=== PATIENT | female | born 1950 | race Caucasian/White ===

== ENCOUNTER → 2023-04-15 11:59 | Outpatient (REF) | payer MEDICARE, SELFPAY | LOC: HWWDC 11:59 | PROVIDERS: ATTENDING PHYSICIAN Family Medicine | DX: Z12.31 Encounter for screening mammogram for malignant neoplasm of breast (principal) | CPT/HCPCS: 77063; 77067 ==

== ENCOUNTER → 2023-05-03 11:29 | Outpatient (REF) | payer MEDICARE, SELFPAY | LOC: HWRAD 11:29 | PROVIDERS: ATTENDING PHYSICIAN Internal Medicine Gastroenterology; FAMILY PHYSICIAN Internal Medicine Cardiovascular Disease | DX: R19.7 Diarrhea, unspecified (principal) | CPT/HCPCS: 74018 ==

== ENCOUNTER 2023-07-29 09:59 | Outpatient (RCR) | payer MEDICARE, SELFPAY | END 2023-07-29 23:59 | disposition home or self-care (01) | LOC: RPT 09:59 | PROVIDERS: ATTENDING PHYSICIAN Internal Medicine Gastroenterology; FAMILY PHYSICIAN Family Medicine | DX: M62.89 Other specified disorders of muscle (principal); R15.2 Fecal urgency; Z73.6 Limitation of activities due to disability; R27.8 Other lack of coordination; M62.81 Muscle weakness (generalized) | CPT/HCPCS: 97140; 97162; 97530 ==

== ENCOUNTER 2023-09-02 10:02 | Outpatient (RCR) | payer MEDICARE, SELFPAY | END 2023-09-02 23:59 | disposition home or self-care (01) | LOC: RPT 10:02 | PROVIDERS: ATTENDING PHYSICIAN Internal Medicine Gastroenterology; FAMILY PHYSICIAN Family Medicine | DX: M62.89 Other specified disorders of muscle (principal); R15.2 Fecal urgency; Z73.6 Limitation of activities due to disability; R27.8 Other lack of coordination; M62.81 Muscle weakness (generalized) | CPT/HCPCS: 97112; 97140; 97530 ==

== ENCOUNTER 2023-10-03 16:04 | Outpatient (RCR) | payer MEDICARE, SELFPAY | END 2023-10-03 23:59 | disposition home or self-care (01) | LOC: RPT 16:04 | PROVIDERS: ATTENDING PHYSICIAN Internal Medicine Gastroenterology; FAMILY PHYSICIAN Family Medicine | DX: M62.89 Other specified disorders of muscle (principal); R15.2 Fecal urgency; Z73.6 Limitation of activities due to disability; R27.8 Other lack of coordination; M62.81 Muscle weakness (generalized) | CPT/HCPCS: 97140; 97530 ==

== ENCOUNTER 2023-10-25 11:17 | Emergency (ER) | payer MEDICARE, SELFPAY ==
[2023-10-25 11:21] VITALS: BP 101/54
[2023-10-25 11:23] VITALS: BP 101/54
[2023-10-25 11:25] VITALS: BMI 32.5
[2023-10-25 11:37] LABS: % Basophils 0.3 % (0-2); % Eosinophils 0.1 % (0-6); % Immature Granulocytes 0.5 % (0-0.5); % Lymphocytes 22.8 % (20.5-51.1); % Monocytes 13.9 % (1.7-9.3); % Neutrophils 62.4 % (42.2-75.2); Absolute Lymphocytes 1.8 10^3/uL (1.2-3.4); Absolute Monocytes 1.1 10^3/uL (0.1-0.6); Absolute Neutrophils 4.8 10^3/uL (1.4-6.5); Hematocrit 38.2 % (37.0-47.0); Hemoglobin 13.6 g/dL (12.0-16.0); Mean Corp Hgb Conc. 35.6 g/dL (33.0-37.0); Mean Corpuscular Hgb 31.6 pg (27.0-31.0); Mean Corpuscular Volume 88.6 fL (81.0-99.0); Mean Platelet Volume 9.2 fL (7.4-10.4); Nucleated Red Blood Cells % 0 %; Platelet Count 173 10^3/uL (130-400); Red Blood Cell Count 4.31 10^6/uL (4.20-5.40); White Blood Cell Count 7.8 10^3/uL (4.8-10.8)
--- NOTE | 2023-10-25 11:42 | ED.GENMED ---
History of Present Illness
<Marivel Rajput PA-C - Last Filed: 10/25/23 14:02>
General
Chief Complaint: Dizziness
Source: patient
Exam Limitations: none
Time Seen by Provider: 10/25/23 11:40
Nursing documentation reviewed up to this point in time: agreed with
History of Present Illness
History of Present Illness:
73-year-old female with past medical history of CHF, A-fib, hyperlipidemia presenting emergency department today with concerns of dizziness and lightheadedness. Patient reports that she woke up this morning and felt well and was getting ready to go
to [facility] when she stood up from a sitting position and suddenly felt dizzy and lightheaded. She then became diaphoretic and felt the urge to move her bowels, she then went to go use the bathroom and a large volume of loose stool. Patient also
notes generalized cough and cold symptoms including sore throat. Patient denies any fevers or chills. Patient denies any recent travel, any recent antibiotics. Patient states that the primary dizziness has resolved and now she feels a generalized
weakness and not like herself. Patient denies chest pain or shortness of breath, denies any headache or visual changes. Patient denies any syncopal episodes. Patient follows with Dr. Dove has a pacemaker in place.
Past History
<DANICA Rosario Last Filed: 10/25/23 14:02>
Past History
ED Past Medical History: Arrthythmia, CAD, CHF, COPD, GERD, HTN, Hypercholesterolemia and Other (Pacemaker)
ED Past Surgical History: Cardiac and Gynecological
Social History
Tobacco: Non-smoker
Alcohol: Occasional
Drug: None
Personal:
Living: alone
Employment: Employed
Family History
Family History: Negative Early CAD
Review of Systems
<Marivel Rajput PA-C - Last Filed: 10/25/23 14:02>
Review of Systems
All Other Systems: ROS reviewed and negative except as documented in HPI and ROS
Phy Exam
<Marivel Rajput PA-C - Last Filed: 10/25/23 14:02>
Physical Exam
Physical Exam:
General: Patient is well appearing and in no acute distress; non-toxic
Skin: Warm and dry, no rashes or lesions
Head: Normocephalic, atraumatic
Eyes: Sclera non-icteric. EOMs intact. No nystagmus.
Mouth: Mild pharyngeal erythema, no tonsillar hypertrophy, uvula midline
Neck: No cervical lymphadenopathy
Cardiac: Regular rate and rhythm, no murmurs
Peripheral Vascular: No lower extremity swelling or edema
Pulm: Normal respiratory effort, no wheezes, rales, rhonchi
Abdomen: No abdominal tenderness to palpation
Musculoskeletal: 5 of 5 strength bilateral upper and lower extremities
Neuro: CN II-XII intact, no focal neurologic deficits. Normal finger-nose, heel june testing. Normal gait.
Psychiatric: Appropriate mood and affect.
Course
<Marivel Rajput PA-C - Last Filed: 10/25/23 14:02>
Orders/Labs/Results
Orders:
Orders
10/25/23 11:20
Electrocardiogram (*1) Urgent
Reason for Study: Fatigue / Weakness
10/25/23 11:21
EKG- Treatment ONCE
10/25/23 11:30
Complete Blood Count/With Diff Urgent
Comprehensive Metabolic Panel Urgent
10/25/23 12:11
COVID-19 Antigen Urgent
Source: Nasal Swab
Abnormal Lab Results
10/25/23 10/25/23
11:30 12:11
MCH 31.6 H pg
(27.0-31.0)
Absolute Monos (auto) 1.1 H 10^3/uL
(0.1-0.6)
Monocytes % 13.9 H %
(1.7-9.3)
Chloride 97 L mmol/L
(98-107)
BUN 24 H mg/dl
(7-17)
Glucose 100 H mg/dl
(70-99)
SARS-CoV-2 Antigen Positive A
(Negative)
10/25/23 11:30
10/25/23 11:30
Vital Signs
Initial and Last Documented VS:
Initial Vital Signs
BP
101/54
10/25/23 11:21
Last Documented Vital Signs
Temp Pulse Resp BP Pulse Ox
37.0 C 60 19 106/49 96
10/25/23 11:23 10/25/23 14:00 10/25/23 14:00 10/25/23 13:00 10/25/23 14:00
<Harjit Weinberg MD - Last Filed: 10/25/23 15:10>
Orders/Labs/Results
Orders:
Orders
10/25/23 11:20
Electrocardiogram (*1) Urgent
Reason for Study: Fatigue / Weakness
10/25/23 11:21
EKG- Treatment ONCE
10/25/23 11:30
Complete Blood Count/With Diff Urgent
Comprehensive Metabolic Panel Urgent
10/25/23 12:11
COVID-19 Antigen Urgent
Source: Nasal Swab
Abnormal Lab Results
10/25/23 10/25/23
11:30 12:11
MCH 31.6 H pg
(27.0-31.0)
Absolute Monos (auto) 1.1 H 10^3/uL
(0.1-0.6)
Monocytes % 13.9 H %
(1.7-9.3)
Chloride 97 L mmol/L
(98-107)
BUN 24 H mg/dl
(7-17)
Glucose 100 H mg/dl
(70-99)
SARS-CoV-2 Antigen Positive A
(Negative)
10/25/23 11:30
10/25/23 11:30
Vital Signs
Initial and Last Documented VS:
Initial Vital Signs
BP
101/54
10/25/23 11:21
Last Documented Vital Signs
Temp Pulse Resp BP Pulse Ox
37.0 C 60 19 106/49 96
10/25/23 11:23 10/25/23 14:00 10/25/23 14:00 10/25/23 13:00 10/25/23 14:00
Clauslt;Marivel Rajput PA-C - Last Filed: 10/25/23 14:02>
MDM/Problems Addressed
Differential Diagnosis Includes:
Differentials include viral syndrome, arrhythmia, CVA, vestibular neuritis, BPPV, electrolyte derangement, vasovagal presyncope
MDM/Problems Addressed:
73-year-old female with past medical history of CHF, A-fib, hyperlipidemia presenting emergency department today with concerns of dizziness and lightheadedness. Patient reports that she woke up this morning and felt well and was getting ready to go
to [facility] when she stood up from a sitting position and suddenly felt dizzy and lightheaded. She subsequently had an episode of loose stool and she said it was voluminous. She also reports sore throat and coughing that started today. She denies
any fevers or chills. On exam, she is well-appearing, has no abdominal pain, does have some mild pharyngeal erythema but otherwise unremarkable plan, no focal neurologic findings, normal finger-nose, [id number]. EKG does not show any
arrhythmias. Her pacemaker report from [facility] reveals no high ventricular rate since August 24, no atrial tachycardia or atrial fibrillation. She did test positive today for COVID-19. I do believe this to be the cause of her symptoms. She notes some
improvement in her weakness with fluids. Considering her neurologic exam is unremarkable, no indication for CT at this time. Patient stable for discharge.
Chronic conditions affecting care:
afib, migraines, HLP, HTN, GERD, anemia
<Marivel Rajput PA-C - Last Filed: 10/25/23 14:02>
*Pulse Oximetry
Patient hypoxic: no
*Critical Care Note
Total Time (30-74mins, 75-104mins- exclusive of procedures): Not Applicable
Data Reviewed
Review of Other/Old Records Reveals: Records (Reviewed ER physician documentation from 01/13/2023) and Testing (Reviewed most previous ECHO)
Source: patient and records
Prescriptions/Medications Considered But Not Given:
Antiviral therapy was discussed with patient, no indication at this time
Further Testing Considered But Not Given:
n/a
<Marivel Rajput PA-C - Last Filed: 10/25/23 14:02>
Patient Management
Escalation/DeEscalation of care consider admission/obs:
Patient stable for discharge, case reviewed with my attending Dr. Weinberg
ED Attending Note
<Marivel Rajput PA-C - Last Filed: 10/25/23 14:02>
-
Portions of this chart may have been created with voice recognition software.� Occasional wrong word or��sound alike� substitutions may have occurred due to the inherent limitations of voice recognition software.
<Harjit Weinberg MD - Last Filed: 10/25/23 15:10>
ED Attending Note
Patient seen and examined by attending physician: Yes
ED Attending Note:
I have seen and evaluated the patient with a [id number] encounter. I have spoken to the advance practicer provider and involved in the medical history, the physical exam, medical decision making.
Evaluation and management service: agree unless noted differently below.
Results interpretation: agree unless noted differently below.
Focused HPI: 73-year-old female presents to the ER for evaluation of dizziness. She has been having URI symptoms for the past few days. Today she says that she began to feel lightheaded and sweaty and went to the bathroom and had large volume of
diarrhea. She felt a bit better after having bowel movement and she normally feels dizzy. She has been mildly fatigued. No chest pain or palpitations. No shortness of breath. No fever. No cough. No other complaints.
Physical exam: Awake alert no distress. Vitals normal. No cardiac rubs gallops or murmurs, lungs clear to auscultation bilaterally. Abdomen soft and nontender.
Medical Decision Makin-year-old female presents for evaluation after episode of lightheadedness and diaphoresis prior to a large volume of diarrhea; has been having some URI symptoms the past few days. Vitals are normal, exam reassuring. Labs
were unremarkable. She is positive for COVID. Suspect that this is the etiology of her symptoms, suspect lightheadedness was likely vasovagal in the setting of large volume bowel movement. Device interrogated, no events. Given fluids here.
Offered Paxlovid patient declined. Stable for discharge.
Discharge Plan
Departure
Patient Disposition: Home (Routine Discharge)
Date of Disposition: 10/25/23
Time of Disposition: 13:50
Patient with high blood pressure during this ER visit?: No
Condition: Good
Discharge Problem:
COVID-19
Instructions: COVID-19 ED, Acute Diarrhea
Prescriptions:
No Action
carvedilol 6.25 MG tablet
6.25 mg PO BID
clonazepam 0.5 MG tablet
0.5 mg PO HS
Patient Comments:
01/06/23 filled on 01/03/23 #90
simvastatin 40 MG tablet
40 mg PO HS
omeprazole 20 MG tablet,delayed release (DR/EC)
20 mg PO BID
furosemide 20 MG tablet
20 mg PO DAILY
vitamin E (dl, acetate) 400 UNITS capsule
400 units PO DAILY
isosorbide mononitrate 30 MG tablet extended release 24 hr
30 mg PO DAILY
amlodipine 2.5 mg Tablet
2.5 mg PO DAILY
cyanocobalamin (vitamin B-12) 500 mcg Tablet
500 mcg PO DAILY
coenzyme Q10 [Co Q-10] 100 mg Capsule
100 mg PO DAILY
omega 9-pxe-qak-fish oil [Fish Oil] 1,000 mg (120 mg-180 mg) Capsule
1 cap PO DAILY
acetaminophen [Tylenol Extra Strength] 500 mg Tablet
1,000 mg PO DAILYPRN PRN (Reason: mild pain)
ramipril 2.5 mg Capsule
2.5 mg PO DAILY
Referrals:
Sage Mo DO [Family Provider] -
Activity Restrictions/Additional Instructions:
Please follow up with your primary care provider for reassessment.
Please return to the emergency department should you experience chest pain, shortness of breath, dizziness, visual changes, confusion, difficulty speaking, or any other signs or symptoms concerning to you.
Interventions
Interventions:
*Risk Screen - Suicide Last Done: 10/25/23 11:28
*General Assessment Last Done: 10/25/23 11:28
*Neglect/Abuse Screening Last Done: 10/25/23 11:28
*Nursing Disposition Last Done: 10/25/23 14:23
ED- Neurological Assessment Last Done: 10/25/23 11:25
ED Swallowing Screen Last Done: 10/25/23 11:28
Discharge Date and Time
Discharge Date/Time: 10/25/23 14:23
Print Language: MICRONESIAN
[2023-10-25 12:04] LABS: ALT (SGPT) 19 U/L (0-35); AST (SGOT) 27 U/L (14-36); Alkaline Phosphatase 51 U/L (38-126); Blood Urea Nitrogen 24 mg/dl (7-17); Calcium 8.6 mg/dl (8.4-10.2); Carbon Dioxide 26 mmol/L (22-30); Chloride 97 mmol/L (98-107); Estimated Creatinine Clearance 52 ml/min; Glucose 100 mg/dl (70-99); Potassium 3.9 mmol/L (3.5-5.1); Sodium 135 mmol/L (135-145); Total Bilirubin 0.8 mg/dl (0.2-1.3); Total Protein 6.3 g/dl (6.3-8.2); eGFR 59.12
[2023-10-25 12:08] VITALS: BP 112/57
[2023-10-25 12:30] LABS: COVID-19 Antigen Positive (Negative)
[2023-10-25 13:00] VITALS: BP 106/49
== END 2023-10-25 14:23 | disposition home or self-care (01) ==
LOC: EMR 11:17
PROVIDERS: Physician Assistant; EMERGENCY PHYSICIAN Emergency Medicine; FAMILY PHYSICIAN Family Medicine
DX: U07.1 COVID-19 (principal); R42 Dizziness and giddiness; R19.7 Diarrhea, unspecified; R61 Generalized hyperhidrosis; Z11.52 Encounter for screening for COVID-19; I11.0 Hypertensive heart disease with heart failure; I50.9 Heart failure, unspecified; I48.91 Unspecified atrial fibrillation; E78.00 Pure hypercholesterolemia, unspecified; I25.10 Atherosclerotic heart disease of native coronary artery without angina pectoris; K21.9 Gastro-esophageal reflux disease without esophagitis; J44.9 Chronic obstructive pulmonary disease, unspecified; G43.909 Migraine, unspecified, not intractable, without status migrainosus; D64.9 Anemia, unspecified; K52.9 Noninfective gastroenteritis and colitis, unspecified; K57.90 Diverticulosis of intestine, part unspecified, without perforation or abscess without bleeding; B02.9 Zoster without complications; I42.9 Cardiomyopathy, unspecified; G62.9 Polyneuropathy, unspecified; I44.2 Atrioventricular block, complete; G47.30 Sleep apnea, unspecified; J42 Unspecified chronic bronchitis; Z95.0 Presence of cardiac pacemaker; Z87.01 Personal history of pneumonia (recurrent); Z88.1 Allergy status to other antibiotic agents
CPT/HCPCS: 99283; 93288; 80053; 85025; 87811; 93005

== ENCOUNTER 2023-11-04 11:57 | Outpatient (RCR) | payer MEDICARE, SELFPAY | END 2023-11-04 23:59 | disposition home or self-care (01) | LOC: RPT 11:57 | PROVIDERS: ATTENDING PHYSICIAN Internal Medicine Gastroenterology; FAMILY PHYSICIAN Family Medicine | DX: M62.89 Other specified disorders of muscle (principal); R15.2 Fecal urgency; Z73.6 Limitation of activities due to disability; R27.8 Other lack of coordination; M62.81 Muscle weakness (generalized) | CPT/HCPCS: 97112; 97140; 97530 ==

== ENCOUNTER → 2023-11-11 11:13 | Outpatient (REF) | payer MEDICARE, SELFPAY | LOC: RAD 11:13 | PROVIDERS: ATTENDING PHYSICIAN Internal Medicine Cardiovascular Disease; FAMILY PHYSICIAN Family Medicine | DX: H93.A1 Pulsatile tinnitus, right ear (principal); I65.29 Occlusion and stenosis of unspecified carotid artery; I25.10 Atherosclerotic heart disease of native coronary artery without angina pectoris | CPT/HCPCS: 93880 ==

== ENCOUNTER → 2023-12-01 16:42 | Outpatient (REF) | payer MEDICARE, SELFPAY | LOC: RAD 16:42 | PROVIDERS: ATTENDING PHYSICIAN Family Medicine | DX: M25.572 Pain in left ankle and joints of left foot (principal) | CPT/HCPCS: 73610; 73630 ==

== ENCOUNTER 2023-12-08 12:49 | Outpatient (RCR) | payer MEDICARE, SELFPAY | END 2023-12-08 23:59 | disposition home or self-care (01) | LOC: RPT 12:49 | PROVIDERS: ATTENDING PHYSICIAN Internal Medicine Gastroenterology; FAMILY PHYSICIAN Family Medicine | DX: M62.89 Other specified disorders of muscle (principal); R15.2 Fecal urgency; Z73.6 Limitation of activities due to disability; R27.8 Other lack of coordination; M62.81 Muscle weakness (generalized) | CPT/HCPCS: 97112; 97530 ==

== ENCOUNTER 2023-12-23 11:00 | Outpatient (RCR) | payer MEDICARE, SELFPAY | END 2023-12-23 23:59 | disposition home or self-care (01) | LOC: RPT 11:00 | PROVIDERS: ATTENDING PHYSICIAN Internal Medicine Gastroenterology; FAMILY PHYSICIAN Family Medicine | DX: M62.89 Other specified disorders of muscle (principal); R15.2 Fecal urgency; R27.8 Other lack of coordination; Z73.6 Limitation of activities due to disability; M62.81 Muscle weakness (generalized) | CPT/HCPCS: 97530 ==

== ENCOUNTER 2024-02-07 11:54 | Outpatient (RCR) | payer MEDICARE, SELFPAY | END 2024-02-07 23:59 | disposition home or self-care (01) | LOC: RPT 11:54 | PROVIDERS: ATTENDING PHYSICIAN Internal Medicine Gastroenterology; FAMILY PHYSICIAN Family Medicine | DX: R15.2 Fecal urgency (principal); M62.89 Other specified disorders of muscle; R27.8 Other lack of coordination; M62.81 Muscle weakness (generalized); Z73.6 Limitation of activities due to disability | CPT/HCPCS: 97530 ==

== ENCOUNTER → 2024-04-30 09:48 | Outpatient (REF) | payer MEDICARE, SELFPAY | LOC: HWRAD 09:48 | PROVIDERS: ATTENDING PHYSICIAN Family Medicine | DX: Z12.31 Encounter for screening mammogram for malignant neoplasm of breast (principal); Z78.0 Asymptomatic menopausal state; M81.0 Age-related osteoporosis without current pathological fracture | CPT/HCPCS: 77063; 77067; 77080 ==

== ENCOUNTER 2025-01-05 07:04 | Emergency (ER) | payer MEDICARE, SELFPAY ==
[2025-01-05 07:17] VITALS: BP 165/85
--- NOTE | 2025-01-05 07:37 | ED.GENMED ---
History of Present Illness
General
Chief Complaint: Extremity Pain (non-traumatic)
Source: patient
Time Seen by Provider: 01/05/25 07:21
History of Present Illness
History of Present Illness:
74-year-old female with past medical history of hypertension, hyperlipidemia, CHF, cardiomyopathy status post pacemaker placement, diverticulitis status post colon resection presenting to the emergency department for evaluation of bilateral lower
extremity cramping that began a few days ago, has since developed into full body cramping and today woke up with a right sided headache. Cramping is described to be waxing and waning, worse with attempted movements, no alleviating factors although
patient notes she really did not take anything for the symptoms other than trialed some compression stockings on her lower extremities. Patient does note that she has a mild upper respiratory infection that started earlier in the week which is not
uncommon for her and was given a Z-Mateo by her primary care provider which she has taken with some relief. She notes that her cough has gotten much less. She denies any chest pain, pleurisy, hemoptysis, fevers, chills or rigors, abdominal pain,
nausea or vomiting. She does note that she had recently gone a elliptical machine at home and had been on the elliptical machine but for only 5 minutes and states she definitely did not overdo it. Social history noncontributory.
Past History
Past History
ED Past Medical History: Arrthythmia, CAD, CHF, COPD, GERD, HTN, Hypercholesterolemia and Other (Pacemaker)
ED Past Surgical History: Cardiac and Gynecological
Social History
Tobacco: Non-smoker
Alcohol: Occasional
Drug: None
Personal:
Living: alone
Employment: Employed
Family History
Family History: Negative Early CAD
Review of Systems
Review of Systems
All Other Systems: ROS reviewed and negative except as documented in HPI and ROS
Phy Exam
Physical Exam
Physical Exam:
GENERAL: Alert , in no apparent distress
HEAD: Normocephalic atraumatic
EYE: conjunctiva clear
NECK: Supple
ENT: o/p clr, mmm.
CARDIAC: Regular rate and rhythm
LUNGS: Clear breath sounds bilaterally, no acute respiratory distress, no wheezes/rales/rhonchi
NEUROLOGICAL: Alert and oriented
SKIN: Warm and dry, skin intact.
MUSCULOSKELETAL: well perfused. no edema
PSYCH: Normal and appropriate interaction.
Scores
Heart Failure Risk
Heart Failure Risk Score: Not Applicable
Heart Score for Chest Pain Patients
STEMI patient?: Not applicable
Withdrawal Assessment of Alcohol
Withdrawal Assessment Completed?: Not applicable
Course
Orders/Labs/Results
Orders:
Orders
01/05/25 08:01
CPK [Creatine Phosphokinase] Urgent
Complete Blood Count/With Diff Urgent
Comprehensive Metabolic Panel Urgent
Magnesium Urgent
NT-proBNP Urgent
01/05/25 08:56
Urinalysis Reflex To Culture Urgent
Date Specimen was Collected: 01/05/25
Time Specimen was Collected: 08:50
Urine Microscopic Reflex Cult Urgent
Abnormal Lab Results
01/05/25 01/05/25
08:01 08:56
Absolute Monos (auto) 0.7 H 10^3/uL
(0.1-0.6)
Monocytes % 9.7 H %
(1.7-9.3)
Carbon Dioxide 31 H mmol/L
(22-30)
BUN 23 H mg/dl
(7-17)
Urine Bacteria (Reflex) Few A
(Negative)
Urine Albumin (Reflex) 1+ A
(Neg - Trace)
01/05/25 08:01
01/05/25 08:01
Vital Signs
Initial and Last Documented VS:
Initial Vital Signs
Temp Pulse Resp BP Pulse Ox
97.5 F 73 16 165/85 99
01/05/25 07:17 01/05/25 07:17 01/05/25 07:17 01/05/25 07:17 01/05/25 07:17
Last Documented Vital Signs
Temp Pulse Resp BP Pulse Ox
97.5 F 80 18 130/57 98
01/05/25 07:17 01/05/25 10:15 01/05/25 10:15 01/05/25 10:15 01/05/25 10:15
MDM/Problems Addressed
Differential Diagnosis Includes:
Myalgia
Rhabdomyolysis
Electrolyte Imbalance
Doubt CHF exacerbation
Viral syndrome
OA
Symptoms not consistent with ACS/angina
MDM/Problems Addressed:
74-year-old female presenting to the ER for evaluation of bilateral lower extremity cramping, symptoms have since become diffuse with no specified etiology. She is currently on a Z-Mateo however unlikely to be the culprit as she has been on Z-Mateo's
multiple times in the past without complication. She is overall hemodynamically stable, well-appearing and in no acute distress. She does have a significant cardiac history however no symptoms to be suggestive of cardiac etiology although given
the bilateral lower extremity symptoms we will check a BNP although patient does not appear volume overloaded. Will consider anti-inflammatories pending lab results. Disposition pending.
*Pulse Oximetry
SaO2: 99
Oxygen Mode of Delivery: Room air
Patient hypoxic: no
*Critical Care Note
Total Time (30-74mins, 75-104mins- exclusive of procedures): Not Applicable
Patient Management
Escalation/DeEscalation of care consider admission/obs:
Patient's workup is largely unremarkable. Labs are reassuring. Overall no exact etiology for the patient's symptoms but doubt any emergent pathology. Given her URI and currently on Zithromax it is possibly related to her current symptoms.
Continue Tylenol as needed. Recommend close follow-up with primary care provider.
ED Attending Note
-
Portions of this chart may have been created with voice recognition software.� Occasional wrong word or��sound alike� substitutions may have occurred due to the inherent limitations of voice recognition software.
Discharge Plan
Departure
Patient Disposition: Home (Routine Discharge)
Date of Disposition: 01/05/25
Time of Disposition: 09:43
Patient with high blood pressure during this ER visit?: Yes
Discharge Problem:
Myalgia
Instructions: Muscle and Bone Pain (DC)
Prescriptions:
No Action
carvedilol 6.25 MG tablet
6.25 mg PO BID
clonazepam 0.5 MG tablet
0.5 mg PO HS
Patient Comments:
01/06/23 filled on 01/03/23 #90
simvastatin 40 MG tablet
40 mg PO HS
omeprazole 20 MG tablet,delayed release (DR/EC)
20 mg PO BID
furosemide 20 MG tablet
20 mg PO DAILY
vitamin E (dl, acetate) 400 UNITS capsule
400 units PO DAILY
isosorbide mononitrate 30 MG tablet extended release 24 hr
30 mg PO DAILY
amlodipine 2.5 mg Tablet
2.5 mg PO DAILY
cyanocobalamin (vitamin B-12) 500 mcg Tablet
500 mcg PO DAILY
coenzyme Q10 [Co Q-10] 100 mg Capsule
100 mg PO DAILY
omega 1-dub-dor-fish oil [Fish Oil] 1,000 mg (120 mg-180 mg) Capsule
1 cap PO DAILY
acetaminophen [Tylenol Extra Strength] 500 mg Tablet
1,000 mg PO DAILYPRN PRN (Reason: mild pain)
ramipril 2.5 mg Capsule
2.5 mg PO DAILY
Referrals:
Sage Mo DO [Family Provider, Family Practice]
Interventions
Interventions:
*Risk Screen - Suicide Last Done: 01/05/25 07:17
*General Assessment Last Done: 01/05/25 07:17
*Neglect/Abuse Screening Last Done: 01/05/25 07:17
*ED- Fall Risk Assessment Last Done: 01/05/25 08:00
*ED COVID-19 Vaccine History Last Done: 01/05/25 07:17
*ED Influenza Vaccine History Last Done: 01/05/25 07:17
*Nursing Disposition Last Done: 01/05/25 10:15
ED-Skin Assessment Last Done: 01/05/25 07:54
ED-Peripheral Vascular Assessment Last Done: 01/05/25 07:54
ED-Musculoskeletal Assessment Last Done: 01/05/25 07:54
Discharge Date and Time
Discharge Date/Time: 01/05/25 10:15
Print Language: MALAYSIAN
[2025-01-05 07:39] VITALS: BMI 33.6
[2025-01-05 07:45] VITALS: BP 121/63
[2025-01-05 08:20] LABS: Hematocrit 42.5 % (37.0-47.0); Hemoglobin 14.6 g/dL (12.0-16.0); Mean Corp Hgb Conc. 34.4 g/dL (33.0-37.0); Mean Corpuscular Volume 87.8 fL (81.0-99.0); Nucleated Red Blood Cells % 0 %; Platelet Count 221 10^3/uL (130-400); Red Cell Dist. Width 13.2 % (11.5-14.5)
[2025-01-05 08:31] LABS: ALT (SGPT) 22 U/L (0-35); AST (SGOT) 21 U/L (14-36); Albumin 4.3 g/dl (3.5-5.0); Alkaline Phosphatase 51 U/L (38-126); Blood Urea Nitrogen 23 mg/dl (7-17); Calcium 9.1 mg/dl (8.4-10.2); Carbon Dioxide 31 mmol/L (22-30); Chloride 100 mmol/L (98-107); Estimated Creatinine Clearance 57 ml/min; Glucose 96 mg/dl (70-99); Magnesium 2.1 mg/dl (1.6-2.3); Potassium 4.7 mmol/L (3.5-5.1); Sodium 135 mmol/L (135-145); Total Protein 7.2 g/dl (6.3-8.2); eGFR > 60.00
[2025-01-05 09:30] LABS: Urine Character Clear (Clear)
[2025-01-05 10:15] VITALS: BP 130/57
--- NOTE | 2025-01-05 10:31 | EDRN ---
Reviewed discharge instructions with patient. Verbalized understanding. Taken to lobby in wheelchair.
[2025-01-05 10:33] LABS: Urine Red Blood Cell 0-2 /HPF (0-2); Urine White Cell 0-2 /HPF (0-5)
== END 2025-01-05 10:15 | disposition home or self-care (01) ==
LOC: EMR 07:04
PROVIDERS: Physician Assistant Medical; EMERGENCY PHYSICIAN Emergency Medicine; FAMILY PHYSICIAN Family Medicine
DX: M79.18 Myalgia, other site (principal); E78.00 Pure hypercholesterolemia, unspecified; I11.0 Hypertensive heart disease with heart failure; I50.9 Heart failure, unspecified; I25.10 Atherosclerotic heart disease of native coronary artery without angina pectoris; I42.9 Cardiomyopathy, unspecified; J44.9 Chronic obstructive pulmonary disease, unspecified; Z95.0 Presence of cardiac pacemaker
CPT/HCPCS: 99283; 80053; 81003; 81015; 82550; 83735; 83880; 85025